=== PATIENT | female | born 1940 | race Caucasian/White ===

== ENCOUNTER 2016-09-05 17:47 | Observation (INO) | payer OTHER ==
[~2016-09-05] VITALS: Ht 170.2 cm; Wt 89.5 kg
[~2016-09-05 17:47] MED LIST: ADULT LOW DOSE81 M1 PO; AMIODARONE HCL200 MG PO; AMLODIPINE BESYL5 MG PO; ASPIR 8181 M1 PO; ASPIR-LOW81 MG PO; ASPIRIN325 MG PO; Aspirin E.C. PO; COUMADIN3 MG PO; COUMADIN4 MG PO; Coumadin,Jantoven PO; DIGOXIN125 MCG PO; FISH OIL 1,0001 EACH PO; HYDROCHLOROTH12.5 M1 PO; LEVOTHYROXINE100 MCG PO; LEVOTHYROXINE75 MCG PO; LISINOPRIL20 MG PO; LOPRESSOR100 M1 PO; LOPRESSOR50 MG PO; LOVAZA1 GM PO; Levothroid,Synthroid PO; Lopressor PO; METOPROLOL SUCC50 MG PO; METOPROLOL TAR100 MG PO; NORVASC5 MG PO; Norvasc PO; ONCE DAILY1 EACH PO; PLAVIX75 MG PO; POTASSIUM CHLO10 MEQ PO; PRINIVIL20 MG PO; SYNTHROID100 MCG PO; WARFARIN SODIUM6 MG PO; XARELTO20 MG PO; ZESTRIL,PRINIVI20 MG PO; Zestril,Prinivil PO
[2016-09-05] MEDS ORDERED: LO-DOSE ASPIRIN81 M2 PO (18:29)
[2016-09-05] MEDS ORDERED: XARELTO20 MG PO (18:30)
[2016-09-05 19:30] LABS: EOSINOPHIL (%) 0 % (0-5); IMMATURE GRANULOCYTE (%) 0.2 % (0.0-0.7); INSTRUMENT ABS NEUTROPHIL CT 2.7 K/uL; LYMPHOCYTE COUNT 1.2 K/uL (1.0-2.8); MCH 28.4 PG (29.0-34.0); MCHC 32.4 G/DL (30.0-36.0); MCV 87.8 FL (83-99); MEAN PLAT.VOLUME 9.6 uM^3 (9.5-12.4); MONOCYTE (%) 9.3 % (3-12); MONOCYTE COUNT 0.4 K/uL (0-0.8); NEUTROPHIL (%) 62.4 % (45-76); NEUTROPHIL COUNT 2.7 K/uL (1.8-6.4); PLATELET COUNT 202 K/uL (156-360); RBC DIS.WIDTH-CV 13.7 % (11.8-14.6); RBC DIS.WIDTH-SD 44.3 % (39-53); RED BLOOD COUNT 4.33 M/uL (3.80-5.20); WHITE BLOOD COUNT 4.3 K/uL (4.1-10.2)
[2016-09-05 19:35] LABS: CHLORIDE 109 mEq/L (99-109); POTASSIUM 3.8 mEq/L (3.7-5.4); SODIUM 142 mEq/L (136-147)
[2016-09-05 19:38] LABS: GLUCOSE 107 mg/dL (70-99)
[2016-09-05 19:39] LABS: ANION GAP 10 MEQ/L (2-14)
[2016-09-05 19:40] LABS: TOTAL BILIRUBIN 0.6 mg/dL (0.0-1.0)
[2016-09-05 19:41] LABS: ALKALINE PHOSPHATASE 51 IU/L (3-129); GFR ESTIMATE (CALCULATED) > 59 mL/min/
[2016-09-05 19:42] LABS: UREA NITROGEN (BUN) 13 mg/dL (9-23)
[2016-09-05 19:45] LABS: TROP-I INTERPRETATION NEGATIVE; TROPONIN-I < 0.01 ng/mL (0.0-0.30)
[2016-09-05] MEDS ORDERED: VALIUM5 MG PO (21:42)
[2016-09-05] MEDS ORDERED: ANTIVERT25 MG PO (21:42)
[2016-09-06 01:40] VITALS: BP 145/69; BP 170/88; BP 192/84
[2016-09-06 02:49] LABS: TROP-I INTERPRETATION NEGATIVE; TROPONIN-I < 0.01 ng/mL (0.0-0.30)
[2016-09-06 05:09] VITALS: BP 142/67
[2016-09-06 07:46] LABS: EOSINOPHIL (%) 0 % (0-5); HEMATOCRIT 34.5 % (36.0-46.0); IMMATURE GRANULOCYTE (%) 0.3 % (0.0-0.7); INSTRUMENT ABS NEUTROPHIL CT 1.3 K/uL; LYMPHOCYTE COUNT 1.4 K/uL (1.0-2.8); MCH 28.8 PG (29.0-34.0); MCHC 32.8 G/DL (30.0-36.0); MEAN PLAT.VOLUME 9.4 uM^3 (9.5-12.4); MONOCYTE (%) 10.6 % (3-12); MONOCYTE COUNT 0.3 K/uL (0-0.8); NEUTROPHIL (%) 44.1 % (45-76); NEUTROPHIL COUNT 1.3 K/uL (1.8-6.4); PLATELET COUNT 165 K/uL (156-360); RBC DIS.WIDTH-CV 13.8 % (11.8-14.6); RBC DIS.WIDTH-SD 44.2 % (39-53); RED BLOOD COUNT 3.92 M/uL (3.80-5.20)
[2016-09-06 07:51] LABS: ANION GAP 6 MEQ/L (2-14); CHLORIDE 112 MEQ/L (99-109); GFR ESTIMATE (CALCULATED) > 59 mL/min/; GLUCOSE 94 mg/dL (70-99); POTASSIUM 3.9 MEQ/L (3.7-5.4); SAMPLE HEMOLYSIS CHECK 0; SAMPLE ICTERIC CHECK 0; SAMPLE LIPEMIA CHECK 0; SODIUM 144 MEQ/L (136-147); UREA NITROGEN (BUN) 10 mg/dL (9-23)
[2016-09-06 07:55] LABS: TROP-I INTERPRETATION NEGATIVE; TROPONIN-I 0.01 ng/mL (0.0-0.30)
[2016-09-06 08:30] VITALS: BP 156/75
[2016-09-06 08:32] VITALS: BP 164/60
[2016-09-06 08:33] VITALS: BP 146/66
[2016-09-06] MEDS ORDERED: LOPRESSOR25 MG PO (11:03)
[2016-09-06] MEDS ORDERED: PRINIVIL20 MG PO (11:17)
== END 2016-09-06 11:57 | disposition home or self-care (01) ==
LOC: EME → EDBD 17:47 → EDOF 09-06 00:15 → 5WEST 09-06 00:15
PROVIDERS: Emergency Medicine; Family Medicine
DX: R55 Syncope and collapse (principal); I48.0 Paroxysmal atrial fibrillation; I10 Essential (primary) hypertension; E78.5 Hyperlipidemia, unspecified; I25.10 Atherosclerotic heart disease of native coronary artery without angina pectoris; Z95.5 Presence of coronary angioplasty implant and graft; E03.9 Hypothyroidism, unspecified; Z87.891 Personal history of nicotine dependence; I25.2 Old myocardial infarction
CPT/HCPCS: 70450; 80048; 80053; 84484; 85025; 93005; 99281; 99285; G0378; J3360; J7030; J7040

== ENCOUNTER 2017-07-24 16:10 | Emergency (ER) | payer OTHER ==
[~2017-07-24] VITALS: Ht 170.2 cm; Wt 92.2 kg
[~2017-07-24 16:10] MED LIST changes: +ANTIVERT25 MG PO; +LO-DOSE ASPIRIN81 M2 PO; +LOPRESSOR25 MG PO; +VALIUM5 MG PO
[2017-07-24 16:32] LABS: HEMATOCRIT 39.6 % (36.0-46.0); HEMOGLOBIN 13.2 G/DL (11.9-15.5); MCH 29.1 PG (29.0-34.0); MCHC 33.3 G/DL (30.0-36.0); MCV 87.4 FL (83-99); PLATELET COUNT 211 K/uL (156-360); RBC DIS.WIDTH-CV 13.1 % (11.8-14.6); RBC DIS.WIDTH-SD 41.5 % (39-53); RED BLOOD COUNT 4.53 M/uL (3.80-5.20); WHITE BLOOD COUNT 4.6 K/uL (4.1-10.2)
[2017-07-24 16:42] LABS: CHLORIDE 109 mEq/L (99-109); SODIUM 143 mEq/L (136-147)
[2017-07-24 16:43] LABS: GLUCOSE 96 mg/dL (70-99)
[2017-07-24 16:47] LABS: CREATININE 0.9 mg/dL (0.6-1.3); GFR ESTIMATE (CALCULATED) > 59 mL/min/
[2017-07-24 16:48] LABS: UREA NITROGEN (BUN) 16 mg/dL (9-23)
[2017-07-24 16:53] LABS: TROP-I INTERPRETATION NEGATIVE; TROPONIN-I < 0.01 ng/mL (0.0-0.30)
[2017-07-24 19:40] VITALS: BP 155/76
== END 2017-07-24 19:44 | disposition home or self-care (01) ==
LOC: EME 16:10
PROVIDERS: Emergency Medicine
DX: E86.0 Dehydration (principal); R55 Syncope and collapse; J98.11 Atelectasis; E78.5 Hyperlipidemia, unspecified; E03.9 Hypothyroidism, unspecified; I25.2 Old myocardial infarction; Z79.82 Long term (current) use of aspirin; Z87.891 Personal history of nicotine dependence; Z95.5 Presence of coronary angioplasty implant and graft; Z86.79 Personal history of other diseases of the circulatory system; Z85.9 Personal history of malignant neoplasm, unspecified; Z88.8 Allergy status to other drugs, medicaments and biological substances
CPT/HCPCS: 71046; 80048; 84484; 85027; 93005; 99281; 99285